=== PATIENT | male | born 1985 | race Caucasian/White ===

== ENCOUNTER 2019-09-27 16:02 | Emergency (ER) | payer BC, SELFPAY ==
[2019-09-27 16:08] VITALS: BP 120/85; PULSE 87; RESP 18; TEMP 36.6; O2SAT 100; BMI 24.3
[2019-09-27 16:20] VITALS: BP 120/85; PULSE 87; RESP 18; TEMP 36.7; O2SAT 100; BMI 24.3
[2019-09-27 16:40] VITALS: BP 120/85; PULSE 87; RESP 18; TEMP 36.6; O2SAT 100
--- NOTE | 2019-09-27 16:41 | PC.NURSE ---
NEOSPORIN AND DRY, NON-STICK DRESSING APPLIED
--- NOTE | 2019-09-27 16:43 | HMH.EDUTC ---
[facility] Disposition Clinical Impression: Laceration Disposition: Home, Self-Care Condition on Discharge: Good Instructions: How to Care for a Laceration After Repair, Laceration Repair, DI for Laceration Repair -- Simple Additional Instructions: You have required stitches today. Please read the following instructions so you know how to care for them: 1. Keep wound area dry for the first 24 hours. 2 May clean gently with mild soap and water, after 48 hours to prevent crusting over suture knots. 3. You may shower if your provider gives permission but do not take a bath until the skin is healed.. 4. Never leave a wet dressing or Band-Aid on your stitches as this allows bacteria to reach the area and may cause infection. Band-aids can cause the wound to sweat and not recommended to wear for long periods of time Watch for signs of infection: Increasing redness, tenderness or warmth around the suture site Unusual swelling around the site Appearance of pus around each suture or any red streaks Fever If you develop any of the above signs or symptoms of infection, Follow up with Family Physician immediately 5. Suture removal in _7-10___days 6. Return to [facility] or follow up with family doctor for removal. This can be done by any medical provider during regular hours on Tuesday through Tuesday, by appointment. Referrals: Provider,Referral, MD [Primary Care Provider] - As needed Time of Disposition: 16:45 Medical Decision Making - Caleb Inquiry Pt receiving controlled substance: No Caleb was queried for this patient: No Vital Signs: 09/27/19 16:08 09/27/19 16:20 09/27/19 16:40 Temperature 98 F 98.0 F 98 F Temperature Source Oral Oral Pulse Rate 87 Pulse Rate [Right] 87 87 Respiratory Rate 18 18 18 Blood Pressure 120/85 Blood Pressure [Right Arm] 120/85 120/85 Blood Pressure Mean [Right Arm] 96 96 Blood Pressure Source [Right Arm] Automatic Cuff Blood Pressure Position [Right Arm] Sitting 02 Sat by Pulse Oximetry 100 100 Oxygen Delivery Method Room Air [facility] HPI - General Stated complaint: AO [id number] @1545 lac to R wrist Time Seen by Provider: 09/27/19 16:43 Mode of Arrival: Ambulatory Source of Information: Patient Limitations: No Limitations Description of Symptoms (Recalled from Triage Doc. by RN): LACERATION TO RIGHT WRIST AFTER CUTTING IT ON A BROKEN PORCELINE SINK APPROX 20 MINUTES AGO. PATIENT IS UP TO DATE ON HIS TETANUS VACCINE HEENT Symptoms (Recalled from RN notes): No Resp Symptoms (Recalled from RN notes): No Skin Symptoms (Recalled from RN notes): Yes MS Symptoms (Recalled from RN notes): No Functional Status (Recalled from RN notes): WNL - History of Present Illness Provider Complaint: Patient state that he was removing a porcelain sink that was broke and edge was jagged when it slipped and cut him on his right wrist area States that he immediately applied pressure and came in to have it checked States that he is not having any numbness or tingling and no squirting blood - Related Data Allergies Allergy/AdvReac Type Severity Reaction Status Date / Time No Known Allergies Allergy Verified 09/27/19 16:10 - Worker's Comp Is this a Worker's Comp case?: No [facility] History - Hepatitis A Screen Drug use history?: No High risk sexual behaviors?: No History of sexually transmitted infection?: No Currently employed?: No Childcare worker?: No Do you have indoor plumbing?: Yes Do you have electricity?: Yes Attestation statement:: This patient has been screened for Hepatitis A risk factors. I have reviewed the patient's past medical history: Yes - Social History Alcohol Intake: never Occupational Status: other ROS Obtained: Yes All systems reviewed & no additional complaints, Yes Systems reviewed as appropriate & no additional complaints - Allergic/Immunologic Comments: laceration to right wrist/forearm Physical Exam - General General appearance: alert, in no apparent dis
== END 2019-09-27 16:48 | disposition home or self-care (01) ==
PROVIDERS: Emergency Provider Nurse Practitioner
DX: S61.511A Laceration without foreign body of right wrist, initial encounter (principal); W45.8XXA Other foreign body or object entering through skin, initial encounter; Y92.9 Unspecified place or not applicable
CPT/HCPCS: 12001; 99201